=== PATIENT | male | born 1960 | race Caucasian/White ===

== ENCOUNTER 2020-03-04 15:05 | Outpatient (CLI) | payer BC ==
--- NOTE | 2020-03-04 17:10 | MRI ---
MRI LUMBAR SPINE WITHOUT CONTRAST: Indication: Lumbar radiculopathy, low back pain. Correlation is made with MRI lumbar spine, 10-25-2009. FINDINGS: The lumbar vertebrae maintain normal height and alignment. Disc spaces are preserved with degenerativ e disc signal changes. There is degenerative spurring from the lumbar vertebrae which is similar to t 2009 exam. L1-2: Mild disc bulge flattens the thecal sac. Mild facet arthrosis. Posterior epidural fat. Very mil d central canal stenosis. L2-3: Mild disc bulge. Moderate facet hypertrophy with posterior epidural fat. Mild central canal omar nosis. L3-4: Broad based disc bulge. Evidence of small central protrusion with inferior migration of a small disc fragment. The small fragment inferior to the disc space along the posterior L4 vertebra measure s approximately 4-5 mm thickness. It does compress the anterior thecal sac. There is moderate facet a nd ligamentous hypertrophy with moderate central canal stenosis. Mild foraminal encroachment without significant foraminal stenosis. L4-5: There is a annular fissure with broad based disc protrusion flattening the thecal sac. Moderate facet and ligamentous hypertrophy with posterior epidural fat. Moderate central canal stenosis. Mild foraminal encroachment. L5-S1: Annular fissure with small central protrusion abutting the anterior thecal sac. Moderate facet hypertrophy. No significant central canal or foraminal stenosis. IMPRESSION: Disc protrusion at L3-4, L4-5, and L5-S1 as described above. POS: OFF
== END 2020-03-04 15:06 | disposition home or self-care (01) ==
LOC: BICMRI 15:05
PROVIDERS: ATTEND Family Medicine
DX: M51.16 Intervertebral disc disorders with radiculopathy, lumbar region (principal); M51.17 Intervertebral disc disorders with radiculopathy, lumbosacral region
CPT/HCPCS: 72148

== ENCOUNTER 2020-05-10 05:39 | Day surgery (SDC) | payer BC ==
[2020-05-08 11:55] VITALS: BMI 33.5
--- NOTE | 2020-05-09 21:44 | HP ---
HISTORY OF PRESENT ILLNESS: Mr. Oh is a 59-year-old man, presenting to our office for right lower extremity L4 and L5 pains as well as significant symptoms of what sounds like neurogenic claudication. He has attempted treating this conservatively with medications and time, and then ultimately had an MRI of his lumbar spine performed at [facility] reveals profound stenosis from L3-L4 with some moderate to severe lateral recess stenosis at L4-5. He hopes to discuss possible surgical decompression. PAST MEDICAL HISTORY: Significant for hypercholesterolemia, diabetes, and osteoarthritis. PAST SURGICAL HISTORY: Unspecified lumbar decompression, right knee replacement. CURRENT MEDICATIONS: 1. Metformin. 2. Lisinopril. 3. Rosuvastatin. 4. Meloxicam. 5. Tramadol. 6. Gabapentin. ALLERGIES: TO CODEINE. PHYSICAL EXAMINATION: Deferred for telehealth visit. ASSESSMENT: Lumbar spinal stenosis with claudication, radiculopathy. PLAN: Dr. Lombardi met with the patient, reviewed imaging, advocated for an L3-L5 decompression. He explained to the patient the risks, benefits, and alternatives to the procedure. The patient expressed understanding and elected to move forward with surgery as discussed. I do believe the patient is mentally competent and capable of making medical decisions for himself. We will move forward with surgery as planned. Job ID: [id number]
[2020-05-10] MEDS ORDERED: Bupivacaine PF 0.5% 30 ML VIAL ONE (06:11)
[2020-05-10] MEDS ORDERED: EPINEPHrine 1 MG/ML AMP ONE (06:11)
[2020-05-10] MEDS ORDERED: Thrombin 5000 UNITS/5 ML VIAL ONE (06:11)
[2020-05-10] MEDS ORDERED: Fentanyl 100 MCG/2 ML VIAL ONE ×2 (06:30→08:42)
--- NOTE | 2020-05-10 08:38 | OP ---
DATE OF PROCEDURE: 05/10/2020 [employer] TECHNICIAN: Rigo Power PA-C. INDICATION: Pain. DIAGNOSIS: Lumbar stenosis. PROCEDURE PERFORMED: L3 through L5 decompression. ANESTHESIA: General. DESCRIPTION OF PROCEDURE: The patient was brought into the operating room and placed under general anesthesia. He was flipped from the supine to prone position on the operating room table. A linear incision was planned spanning the L3 through L5 segments. After prepping and draping and after an appropriate preoperative pause, the incision was created. The soft tissues were swept away from midline. A self-retaining retractor was placed in the wound for optimal exposure, and a C-arm image obtained to confirm the appropriate level. An Adson rongeur was used to remove the spinous process of L4, the superior aspect of L5 and the inferior aspect of L3. After completing the decompression and the laminectomy, the laminectomy was extended laterally to encompass the medial aspect of the facet joints in order to adequately decompress the lateral recesses at L3-L4 and L4-L5. The wound was then irrigated. Hemostasis was maintained throughout. The wound was then closed in anatomic layers, and a pressure dressing was applied. There were no known procedural complications. Job ID: [id number]
[2020-05-10] MEDS ORDERED: Morphine 4 MG/ML VIAL ONE (08:54)
[2020-05-10] MEDS ORDERED: Ketorolac Tromethamine 30 MG/ML VIAL ONE (11:29)
[2020-05-10] MEDS ORDERED: Ondansetron PF 4 MG/2 ML Vial ONE (11:29)
[2020-05-10] MEDS ORDERED: PROPOFOL 200 MG/20 ML VIAL ONE (11:29)
[2020-05-10] MEDS ORDERED: Glycopyrrolate 0.2 MG/ML 5 ML SYRINGE ONE (11:29)
[2020-05-10] MEDS ORDERED: Dexamethasone 20 MG/5 ML VIAL ONE (11:29)
[2020-05-10] MEDS ORDERED: Lidocaine 1% PF 5 ML VIAL ONE (11:29)
[2020-05-10] MEDS ORDERED: Rocuronium Bromide 10 MG/ML (10ML VIAL) ONE (11:29)
== END 2020-05-10 12:15 | disposition home or self-care (01) ==
LOC: SDC 05:39
PROVIDERS: ATTEND Neurological Surgery
PROC: 00NY0ZZ Release Lumbar Spinal Cord, Open Approach (ICD-10-PCS; principal; 2020-05-10)
DX: M48.062 Spinal stenosis, lumbar region with neurogenic claudication (principal); M54.16 Radiculopathy, lumbar region; E78.00 Pure hypercholesterolemia, unspecified; E11.9 Type 2 diabetes mellitus without complications; F17.210 Nicotine dependence, cigarettes, uncomplicated; M19.90 Unspecified osteoarthritis, unspecified site; Z79.82 Long term (current) use of aspirin; Z79.84 Long term (current) use of oral hypoglycemic drugs; Z79.899 Other long term (current) drug therapy; Z88.5 Allergy status to narcotic agent; Z91.018 Allergy to other foods; Z96.651 Presence of right artificial knee joint
CPT/HCPCS: 76000; J0171; J0690; J1100; J1885; J2270; J2405; J2704; J3010; S0020

== ENCOUNTER 2021-03-19 15:11 | Outpatient (CLI) | payer BC | END 2021-03-19 15:12 | disposition home or self-care (01) | LOC: TBSIIMAG 15:11 | PROVIDERS: ATTEND Family Medicine | DX: M25.512 Pain in left shoulder (principal); M75.102 Unspecified rotator cuff tear or rupture of left shoulder, not specified as traumatic; S43.432A Superior glenoid labrum lesion of left shoulder, initial encounter; M19.012 Primary osteoarthritis, left shoulder; S46.212A Strain of muscle, fascia and tendon of other parts of biceps, left arm, initial encounter; M62.512 Muscle wasting and atrophy, not elsewhere classified, left shoulder ==

== ENCOUNTER 2021-09-29 09:23 | Outpatient (CLI) | payer BC ==
[2021-09-29 10:04] LABS: #Basophils 0.1 10x3/uL (0.0-0.2); #Eosinphils 0.3 10x3/uL (0.0-0.5); #Monocytes 0.8 10x3/uL (0.0-1.1); #Neutrophils 6.3 10x3/uL (1.5-8.4); %Basophils 0.9 % (0.0-2.0); %Eosinophils 3.4 % (0.0-6.0); %Lymphocytes 17.7 % (18.0-47.0); %Monocytes 8.3 % (0.0-10.0); %Neutrophils 69.4 % (40.0-75.0); Hemoglobin 15.8 g/dL (13.5-17.5); Mean Corpuscular HGB CONC 33.9 g/dL (32.0-36.0); Mean Corpuscular Volume 97.3 fl (81.2-95.1); Mean Platelet Volume 9.7 fl (7.4-10.4); Platelet Count 173 10x3/uL (150-450); RBC Distribution Width 13.8 % (11.5-14.5); Red Blood Cell (RBC) Count 4.79 10x6/uL (4.32-5.72)
[2021-09-29 10:31] LABS: Anion Gap 14 mmol/L (10-20); BUN (Urea Nitrogen) 10 mg/dL (8.4-25.7); Calc. Creatinine Clearance 0 mL/min (70-130); Calcium 9.2 mg/dL (7.8-10.44); Carbon Dioxide 23 mmol/L (22-29); Chloride 105 mmol/L (98-107); Glucose 129 mg/dL (70-105); Potassium 4.1 mmol/L (3.5-5.1); Sodium 138 mmol/L (136-145)
== END 2021-09-29 09:24 | disposition home or self-care (01) ==
LOC: LABBT 09:23
PROVIDERS: ATTEND Orthopaedic Surgery
DX: Z01.812 Encounter for preprocedural laboratory examination (principal); S46.012A Strain of muscle(s) and tendon(s) of the rotator cuff of left shoulder, initial encounter; Z20.822 Contact with and (suspected) exposure to COVID-19
CPT/HCPCS: 80048; 85025; U0003; U0005

== ENCOUNTER 2021-10-02 06:49 | Day surgery (SDC) | payer BC ==
[2021-09-30 13:06] VITALS: BMI 33.5
[2021-10-02] MEDS ORDERED: Vancomycin (BATCH) 1.5 GRAM/300 ML BAG ONE (07:24)
[2021-10-02] MEDS ORDERED: Tranexamic Acid 1,000 MG/10 ML VIAL ONE (07:24)
[2021-10-02] MEDS ORDERED: Sodium Chloride 0.9% 100 ML ONE ×2 (07:24→10:30)
[2021-10-02] MEDS ORDERED: Lidocaine 1% (PF) 30 ML VIAL ONE (08:43)
[2021-10-02] MEDS ORDERED: Fentanyl 100 MCG/2 ML VIAL ONE (08:43)
[2021-10-02] MEDS ORDERED: Midazolam HCl 2 mg/2 ml Vial ONE (08:43)
[2021-10-02] MEDS ORDERED: Ropivacaine 0.5% HCl/PF (150 MG/30 ML VIAL) ONE (08:58)
[2021-10-02] MEDS ORDERED: Zolpidem Tartrate 5 MG TAB PO PRN (09:15)
[2021-10-02] MEDS ORDERED: Promethazine HCl 25 MG/ML VIAL IM PRN ×2 (09:15→13:02)
[2021-10-02] MEDS ORDERED: Ondansetron PF 4 MG/2 ML Vial IVP PRN (09:15)
[2021-10-02] MEDS ORDERED: traMADol HCl 50 MG TAB PO PRN ×2 (09:15)
[2021-10-02] MEDS ORDERED: HYDROcodone/Acetaminophen 5/325 mg Tablet PO PRN ×2 (09:15)
[2021-10-02] MEDS ORDERED: Ropivacaine 0.2% 550 ML 550 ML NERVE BLCK SCH (09:15)
[2021-10-02] MEDS ORDERED: Lidocaine 1% w/Epinephrine 1:100K 20 ML VIAL ONE (10:24)
[2021-10-02] MEDS ORDERED: fentaNYL Citrate/PF 100 MCG/2 ML SYRINGE ONE (10:27)
[2021-10-02] MEDS ORDERED: CEFAZOLIN 2 GM VIAL ONE (10:30)
[2021-10-02] MEDS ORDERED: Glycopyrrolate 0.2 MG/ML 5 ML SYRINGE ONE (10:41)
[2021-10-02] MEDS ORDERED: Ondansetron PF 4 MG/2 ML Vial ONE (10:41)
[2021-10-02] MEDS ORDERED: Lidocaine 1% PF 5 ML VIAL ONE (10:41)
[2021-10-02] MEDS ORDERED: PROPOFOL 200 MG/20 ML VIAL ONE (10:41)
[2021-10-02] MEDS ORDERED: Dexamethasone 20 MG/5 ML VIAL ONE (10:41)
[2021-10-02] MEDS ORDERED: ePHEDrine 50 MG/ML VIAL ONE (10:41)
[2021-10-02] MEDS ORDERED: Rocuronium Bromide 10 MG/ML (10ML VIAL) ONE (10:41)
[2021-10-02] MEDS ORDERED: PHENYLEPHRINE-NS 100 MCG/ML 10 ML SYRINGE ONE (10:41)
[2021-10-02] MEDS ORDERED: Ketorolac Tromethamine 30 MG/ML VIAL IVP SCH (12:00)
[2021-10-02] MEDS ORDERED: Promethazine HCl 25 MG/ML VIAL IVPB PRN (13:02)
[2021-10-02] MEDS ORDERED: Ondansetron HCl/PF 4 MG/2 ML Vial IVP PRN (13:02)
[2021-10-02] MEDS ORDERED: HYDROcodone/Acetaminophen 5/325 mg Tablet ONE (13:51)
== END 2021-10-02 14:56 | disposition home or self-care (01) ==
LOC: SDC 06:49
PROVIDERS: ATTEND Orthopaedic Surgery
DX: S46.012A Strain of muscle(s) and tendon(s) of the rotator cuff of left shoulder, initial encounter (principal); E11.9 Type 2 diabetes mellitus without complications; I87.2 Venous insufficiency (chronic) (peripheral); F17.200 Nicotine dependence, unspecified, uncomplicated; E66.9 Obesity, unspecified; Z68.33 Body mass index [BMI] 33.0-33.9, adult; Z79.1 Long term (current) use of non-steroidal anti-inflammatories (NSAID); Z79.82 Long term (current) use of aspirin; Z79.84 Long term (current) use of oral hypoglycemic drugs; Z79.899 Other long term (current) drug therapy; Z88.5 Allergy status to narcotic agent; Z91.018 Allergy to other foods; W19.XXXA Unspecified fall, initial encounter
CPT/HCPCS: A4306; C1713; J0690; J1100; J2001; J2250; J2405; J2704; J2795; J3010; J3370; J3490